=== PATIENT | male | born 1995 | race Caucasian/White ===

== ENCOUNTER 2016-05-02 17:19 | Emergency (ER) | payer OTHER ==
--- NOTE | 2016-05-02 18:36 | ER Document Report ---
ED Medical Screen (RME) - General Stated Complaint: TESTICLE PAIN Mode of Arrival: Ambulatory Information source: Patient Notes: Patient noticed a tender lump to right testicle 2 days ago. Area is only tender with palpation. Patient does complain of a rash to the groin area as well. His rash has been there for a year. hx: none I have greeted and performed a rapid initial assessment of this patient. A comprehensive ED assessment and evaluation of the patient, analysis of test results and completion of the medical decision making process will be conducted by additional ED providers. TRAVEL OUTSIDE OF THE [place] IN LAST 30 DAYS: No - Related Data Allergies/Adverse Reactions: No Known Allergies Allergy (Verified 05/02/16 18:31) Past Medical History - Social History Family history: None - Immunizations Immunizations up to date: Yes Hx Diphtheria, Pertussis, Tetanus Vaccination: No Physical Exam - Vital signs Vitals: Temp Pulse Resp BP Pulse Ox 98.2 F 79 16 122/71 97 05/02/16 17:29 05/02/16 17:29 05/02/16 17:29 05/02/16 17:29 05/02/16 17:29 - General General appearance: Appears well, Alert In distress: None Course - Re-evaluation Re-evalutation: 05/02/16 18:[address] srivastava who agrees with plan for u/s - Vital Signs Vital signs: Temp Pulse Resp BP Pulse Ox 98.2 F 79 16 122/71 97 05/02/16 17:29 05/02/16 17:29 05/02/16 17:29 05/02/16 17:29 05/02/16 17:29
--- NOTE | 2016-05-02 20:29 | ER Document Report ---
ED GI/ <BUSTER CANDELARIA - Last Filed: 05/02/16 20:44> - General Time seen by provider: 20:30 Mode of Arrival: Ambulatory Information source: Patient TRAVEL OUTSIDE OF THE [place] IN LAST 30 DAYS: No - HPI Patient complains to provider of: Testicular pain Onset: Other - see HPI note Associated symptoms: Other - rash in groin area <ISAI JASSO - Last Filed: 05/02/16 21:38> - General Chief Complaint: Testicular Lump Stated Complaint: TESTICLE PAIN Notes: Patient is a 20 year old male presenting to the emergency department for testicular lump and a rash to the groin. Patient states that he has a lump on his right testicle; area is painful with palpation. Patient's testicular lump was onset 2-3 days ago. Patient also complains of a rash to his groin area that has been present for about 1 year. Patient states he tried using jock spray to stop the irritation, this only provided minimal relief. Patient denies any fever or dysuria. Patient has no known allergies. (ISAI JASSO) - Related Data Allergies/Adverse Reactions: No Known Allergies Allergy (Verified 05/02/16 18:31) Past Medical History - General Information source: Patient - Social History Smoking Status: Never Smoker Cigarette use (# per day): No Chew tobacco use (# tins/day): No Frequency of alcohol use: None Drug Abuse: None Family History: None Patient has suicidal ideation: No Patient has homicidal ideation: No Surgical Hx: Negative - Immunizations Immunizations up to date: Yes Hx Diphtheria, Pertussis, Tetanus Vaccination: No <ISAI JASSO - Last Filed: 05/02/16 21:38> Review of Systems - Review of Systems Constitutional: No symptoms reported EENT: No symptoms reported Cardiovascular: No symptoms reported Respiratory: No symptoms reported Gastrointestinal: No symptoms reported Genitourinary: No symptoms reported Male Genitourinary: See HPI Musculoskeletal: No symptoms reported Skin: No symptoms reported Hematologic/Lymphatic: No symptoms reported Neurological/Psychological: No symptoms reported -: Yes All other systems reviewed and negative <ISAI JASSO - Last Filed: 05/02/16 21:38> Physical Exam <BUSTER CANDELARIA - Last Filed: 05/02/16 20:44> - Vital signs Interpretation: Normal <ISAI JASSO - Last Filed: 05/02/16 21:38> - Vital signs Vitals: Temp Pulse Resp BP Pulse Ox 98.2 F 79 16 122/71 97 05/02/16 17:29 05/02/16 17:29 05/02/16 17:29 05/02/16 17:29 05/02/16 17:29 - Notes Notes: GENERAL: Well-appearing, well-nourished no acute distress HEAD: Atraumatic, normocephalic EYES: Anicteric without conjunctival injection ENT: Normal to inspection, moist mucous membranes NECK: Supple with grossly normal range of motion LUNGS: Breath sounds clear to auscultation bilaterally and equal. No wheezes rales or rhonchi HEART: Regular rate and rhythm without murmurs ABDOMEN: Normal to inspection MALE GENITOURINARY: Small circumcised rash in inguinal region consistent with tinea cruris, small pinpoint pustule with tenderness to area of concern, no testicular tenderness or epidermal tenderness, varocele are not easily palpable. EXTREMITIES: No edema NEUROLOGICAL: Grossly normal with symmetrical movements PSYCH: Normal mood, normal affect SKIN: Warm, Dry (ISAI JASSO) Course - Diagnostic Test Radiology reviewed: Reports reviewed - Right Varicocele <BUSTER CANDELARIA - Last Filed: 05/02/16 20:44> <ISAI JASSO - Last Filed: 05/02/16 21:38> - Re-evaluation Re-evalutation: 05/02/16 20:39 My exam he clearly has tinea cruris. We discussed treatment which he has been using and is actually improved somewhat not made it go away. He understands keep the area clean and dry and will use powders keep the area dry as well as an antifungal. The tender area appears to be a small pustule and not really consistent with a herpetic lesion. It is more at the base of the scrotum on the right near the inguinal fold. There is no evidence of abscess deeper. The varicocele noted on the scrotal ultrasound is palpated more as a fullness and there is no associated tenderness. Patient understands findings and follow-up needs as well as treatment plans. (BUSTER CANDELARIA) - Vital Signs Vital signs: Temp Pulse Resp BP Pulse Ox 98.2 F 79 16 122/71 97 05/02/16 17:29 05/02/16 17:29 05/02/16 17:29 05/02/16 17:29 05/02/16 17:29 Discharge <BUSTER CANDELARIA - Last Filed: 05/02/16 20:44> <ISAI JASSO - Last Filed: 05/02/16 21:38> - Discharge Clinical Impression: Tinea cruris, Skin pustule, Right varicocele Disposition: HOME, SELF-CARE Additional Instructions: Make sure to keep the scrotal and inguinal region clean and dry. Use a powder such as Mycostatin as well. Consider Lotrimin as well. Expect it to take a significant time to improve even if you follow directions. Watch the pustule and return if it appears to be enlarging or getting more painful. At this point wash and keep clean, returning if worsening otherwise. Referrals: [facility] [Provider Group] - Follow up in 3-5 days Scribe Attestation: 05/02/16 20:41 I personally performed the services described in the documentation, reviewed and edited the documentation which was dictated to the scribe in my presence, and it accurately records my words and actions. (BUSTER CANDELARIA) Scribe Documentation - Scribe Written by Neel:: Isai Jasso 05/02/16 21:35 acting as scribe for :: Pedor <ISAI JASSO - Last Filed: 05/02/16 21:38>
[2016-05-02 21:47] VITALS: BP 142/71
== END 2016-05-02 21:30 | disposition home or self-care (01) ==
LOC: ER 17:19
DX: I86.1 Scrotal varices (principal); B35.6 Tinea cruris; L08.9 Local infection of the skin and subcutaneous tissue, unspecified
CPT/HCPCS: 76870; 93976; 99284

== ENCOUNTER 2017-04-15 21:14 | Emergency (ER) | payer OTHER ==
[2017-04-15 21:22] VITALS: BP 139/61
[2017-04-15] MEDS ORDERED: DIPH/PERTUSS(ACELL)/TETANUS VAC/PF 0.5 ML SYR (>=10YO) IM ONE (22:37)
--- NOTE | 2017-04-15 22:41 | ER Document Report ---
ED Hand/Wrist Injury - General Chief Complaint: Thumb Injury Stated Complaint: LT THUMB INJURY Time Seen by Provider: 04/15/17 22:04 Mode of Arrival: Ambulatory Information source: Patient Notes: 21-year-old male presents to ED for complaint of right thumb pain. He states he was using an elbow socket at work when the socket slipped off causing him to hit his thumb at full speed causing abrasion to the area as well as pain and tenderness to the thumb. TRAVEL OUTSIDE OF THE [place] IN LAST 30 DAYS: No - HPI Injury to: Thumb Onset: This afternoon Where: Work Timing: Still present Quality of pain: No pain Severity: None Pain Level: Denies Context: Blow - Related Data Allergies/Adverse Reactions: No Known Allergies Allergy (Verified 05/02/16 18:31) Past Medical History - General Information source: Patient - Social History Smoking Status: Never Smoker Cigarette use (# per day): No Chew tobacco use (# tins/day): Yes - Chews tobacco 1 can a day Smoking Education Provided: No Frequency of alcohol use: None Drug Abuse: None Occupation: [employer] Lives with: Family Family History: Arthritis, CAD, DM, Hyperlipidemia, Hypertension, Thyroid Disfunction. denies: COPD, CVA, Malignancy Patient has suicidal ideation: No Patient has homicidal ideation: No - Past Medical History Cardiac Medical History: Reports: None Pulmonary Medical History: Reports: None EENT Medical History: Reports: None Neurological Medical History: Reports: None Endocrine Medical History: Reports: None Renal/ Medical History: Reports: None Malignancy Medical History: Reports None GI Medical History: Reports: None Musculoskeltal Medical History: Reports Hx Musculoskeletal Trauma Skin Medical History: Reports None Psychiatric Medical History: Reports: None Traumatic Medical History: Reports: Hx Fractures - Right clavicle Infectious Medical History: Reports: None Past Surgical History: Reports: Hx Myringotomy - Immunizations Immunizations up to date: Yes Hx Diphtheria, Pertussis, Tetanus Vaccination: Yes - 04/15/2017 Review of Systems - Review of Systems Notes: Constitutional: [PRESENT: as per HPI. ABSENT: chills, fever(s), headache(s), weight gain, weight loss] Eyes: [ABSENT: visual disturbances] Ears: [ABSENT: hearing changes] Cardiovascular: [ABSENT: chest pain, dyspnea on exertion, edema, orthropnea, palpitations] Respiratory: [ABSENT: cough, hemoptysis] Gastrointestinal: [ABSENT: abdominal pain, constipation, diarrhea, hematemesis, hematochezia, nausea, vomiting] Genitourinary: [ABSENT: dysuria, hematuria] Musculoskeletal: Tenderness to right thumb Integumentary: Abrasion to right thumb Neurological: [ABSENT: abnormal gait, abnormal speech, confusion, dizziness, focal weakness, syncope] Psychiatric: [ABSENT: anxiety, depression, homicidal ideation, suicidal ideation ] Endocrine: [ABSENT: cold intolerance, heat intolerance, menstrual abnormalities , polydipsia, polyuria] Hematologic/Lymphatic: [ABSENT: easy bleeding, easy bruising, lymphadenopathy] Physical Exam - Vital signs Vitals: Temp Pulse Resp BP Pulse Ox 97.8 F 80 16 139/61 H 99 04/15/17 21:20 04/15/17 21:20 04/15/17 21:20 04/15/17 21:20 04/15/17 21:20 - Notes Notes: PHYSICAL EXAMINATION: GENERAL: Well-appearing, well-nourished and in no acute distress. HEAD: Atraumatic, normocephalic. EYES: Pupils equal round and reactive to light, extraocular movements intact, sclera anicteric, conjunctiva are normal. ENT: Nares patent, oropharynx clear without exudates. Moist mucous membranes. NECK: Normal range of motion, supple without lymphadenopathy LUNGS: Breath sounds clear to auscultation bilaterally and equal. No wheezes rales or rhonchi. HEART: Regular rate and rhythm without murmurs ABDOMEN: Soft, nontender, nondistended abdomen. No guarding, no rebound. No masses appreciated. Musculoskeletal: Normal range of motion, no pitting or edema. No cyanosis. Tenderness to the right thumb no limitation to range of motion NEUROLOGICAL: Cranial nerves grossly intact. Normal speech, normal gait. Normal sensory, motor exams PSYCH: Normal mood, normal affect. SKIN: Warm, Dry, normal turgor, no rashes or lesions noted. Abrasion to right thumb Course - Re-evaluation Re-evalutation: 04/16/17 00:19 X-ray discussed with patient before discharge. Wounds to thumb were cleaned with Shur-Clens saline bacitracin applied. Patient was treated with tetanus shot. Patient was discharged home to follow-up with primary doctor. - Vital Signs Vital signs: Temp Pulse Resp BP Pulse Ox 97.8 F 80 16 139/61 H 99 04/15/17 21:20 04/15/17 21:20 04/15/17 21:20 04/15/17 21:20 04/15/17 21:20 - Diagnostic Test Radiology reviewed: Image reviewed, Reports reviewed Discharge - Discharge Clinical Impression: Contusion of left thumb Qualifiers: Encounter type: initial encounter Damage to nail status: without damage Qualified Code(s): S60.012A - Contusion of left thumb without damage to nail, initial encounter Abrasion of left thumb Qualifiers: Encounter type: initial encounter Qualified Code(s): S60.312A - Abrasion of left thumb, initial encounter Condition: Stable Disposition: HOME, SELF-CARE Instructions: Family Physicians / Practices Additional Instructions: CONTUSION: Your injury has resulted in a contusion -- a crushing of the deep tissues. No injury to important structures was detected during the physician's exam. Contusions vary in the amount of pain they cause, and in the length of time required for healing. Typically, the area will become bruised, and will remain painful to touch for two or three weeks. However, most patients are back to working and playing within a few days. After the initial period of rest and cold-packs, your symptoms (together with the doctor's recommendations) will determine how rapidly you can get back to full activity. Usually this means "do what feels okay, but don't do things that hurt." If re-examination was recommended, it's important to follow up as instructed. Call the doctor or return any time if pain increases, if swelling becomes severe, if you develop numbness or weakness in an injured extremity, or if any other alarming symptoms occur. ABRASIONS: An abrasion is a scraping injury of the skin. Some scarring may result. The seriousness of an abrasion is not always obvious at first. Hidden tissue damage may be present and infection may occur despite proper care. Complete healing may take from ten days to as long as a month. The healing time depends on the depth of the abrasion, and on the amount of crushing of underlying tissues from the injury. Keep the wound and dressing clean. Do not shower or bathe the area until okayed by the doctor. If the dressing gets wet, remove it and blot the wound dry, then reapply a clean dressing. Dressings should be changed every day. Sunscreen should be used for six months after the skin is healed. If any signs of infection occur (swelling, redness, increasing tenderness, red streaks, profuse purulent drainage from the abrasion, tender lumps in the armpit or groin above the abrasion, or fever), see the doctor immediately. USE OF TYLENOL (ACETAMINOPHEN): Acetaminophen may be taken for pain relief or fever control. It's much safer than aspirin, offering a wider range of "safe" dosages. It is safe during . Some brand names are Tylenol, Panadol, Datril, Anacin 3, Tempra, and Liquiprin. Acetaminophen can be repeated every four hours. The following are maximum recommended dosages: WEIGHT Dose Drops Elixir Chewable( 80mg) (LBS.) drprs=droppers tsp=teaspoon 6 40 mg 0.4 ml (1/2) 6-11 80 mg 0.8 ml (full) tsp 1 tab 12-16 120 mg 1 1/2 drprs 3/4 tsp 1 1/2 tabs 17-23 160 mg 2 drprs 1 tsp 2 tabs 24-30 240 mg 3 drprs 1 1/2 tsp 3 tabs 30-35 320 mg 2 tsp 4 tabs 36-41 360 mg 2 1/4 tsp 4 1/2 tabs 42-47 400 mg 2 1/2 tsp 5 tabs 48-53 480 mg 3 tsp 6 tabs 54-59 520 mg 3 1/4 tsp 6 1/2 tabs 60-64 560 mg 3 1/2 tsp 7 tabs 65-70 600 mg 3 3/4 tsp 7 1/2 tabs 71-76 640 mg 4 tsp 8 tabs 77-82 720 mg 4 1/2 tsp 9 tabs 83-88 800 mg 5 tsp 10 tabs >89 pounds or adults 650 mg to 900 mg Acetaminophen can be repeated every four hours. Maximum dose not to exceed 4000 mg a day. These maximum recommended dosages are slightly higher than the dosages written on the product container, but these dosages are very safe and below the toxic dosage for acetaminophen. Tetanus Immunization Given You have been given an immunization against tetanus. Please record this in your records. In general, a booster is needed only once every 10 years. The tetanus shot protects against tetanus or "lockjaw," which is a complication of certain wound infections (the tetanus shot cannot protect against the actual infection). The immunization site may become warm and red due to local reaction. If this occurs, apply warm compresses and take aspirin or ibuprofen to reduce inflammation and discomfort. Return for evaluation if the reaction becomes severe. ICE & ELEVATION: Apply ice packs frequently against the painful area. Many different schedules are recommended, such as "20 minutes on, 20 minutes off" or "one hour ice, two hours rest." If you need to work, you may need to go longer between ice treatments. You should plan to have the area ice packed AT LEAST one- fourth of the time. The ice should be applied over the wrap, tape, or splint, or over a layer of cloth -- not directly against the skin. Some ice bags have a built-in cloth and can be put directly on the skin. Your injured part should be elevated as much as possible over the next 48 hours. Try to keep the injury above the level of the heart. Avoid use of the injured area. Elevation and rest will decrease the swelling. USE OF [id number] IBUPROFEN: Ibuprofen (Advil, Nuprin, Medipren, Motrin IB) is a medication for fever and pain control. In addition, it has anti- inflammatory effects which may be beneficial, especially in the treatment of injuries. It's best to take ibuprofen with food. Persons with ulcer disease or allergy to aspirin should notify their physician of this before taking ibuprofen. Ibuprofen can be given every four to six hours, for a total of four doses daily. Age Pain or fever dose Antiinflammatory dose 6-8 yr 200 mg (1 tab) 200 mg (1 tab) 9-11 yr 200 mg (1 tab) 200-400 mg (1-2 tab) 11-14 yr 200-400 mg (1-2 tab) 400 mg (2 tab) 15-adult 400 mg (2 tab) 600 mg (3 tab) FOLLOW-UP CARE: If you have been referred to a physician for follow-up care, call the physician s office for an appointment as you were instructed or within the next two days. If you experience worsening or a significant change in your symptoms, notify the physician immediately or return to the Emergency Department at any time for re-evaluation. Forms: Elevated Blood Pressure, Smoking Cessation Education, Return to Work
--- NOTE | 2017-04-15 23:25 | RADIOLOGY REPORT (SQ) ---
EXAM DESCRIPTION: FINGER LEFT COMPLETED DATE/TIME: 04/15/2017 9:53 pm REASON FOR STUDY: Pain s/p injury COMPARISON: None. NUMBER OF VIEWS: Three views. TECHNIQUE: AP, lateral, and oblique images acquired of the left thumb LIMITATIONS: None. FINDINGS: MINERALIZATION: Normal. BONES: No acute fracture or dislocation. No worrisome bone lesions. SOFT TISSUES: No soft tissue swelling. No foreign body. OTHER: No other significant finding. IMPRESSION: NO RADIOGRAPHIC EVIDENCE OF ACUTE INJURY. COMMENT: SITE OF TRAUMA/COMPLAINT MARKED/STAMP COMPLETED: YES. TECHNICAL DOCUMENTATION: JOB ID: [id number] [email or web address] All Rights Reserved Reading location - IP/workstation name: [email or web address]
== END 2017-04-15 23:44 | disposition home or self-care (01) ==
LOC: ER 21:14
DX: S60.012A Contusion of left thumb without damage to nail, initial encounter (principal); S60.312A Abrasion of left thumb, initial encounter; F17.220 Nicotine dependence, chewing tobacco, uncomplicated; W22.8XXA Striking against or struck by other objects, initial encounter; Y99.0 Civilian activity done for income or pay; Z23 Encounter for immunization
CPT/HCPCS: 90471; 90715; 99283